=== PATIENT | female | born 1990 | race Caucasian/White ===

== ENCOUNTER 2023-02-16 03:33 | Inpatient (IN) | payer BC ==
[2023-02-16 03:58] VITALS: BMI 27.1
[2023-02-16] MEDS ORDERED: Docusate 100 MG CAP PO PRN (04:22)
[2023-02-16] MEDS ORDERED: fentaNYL 50 mcg/mL 1 mL Vial SLOW IVP PRN (04:22)
[2023-02-16] MEDS ORDERED: Acetaminophen 500 MG TAB PO PRN (04:22)
[2023-02-16] MEDS ORDERED: hydrALAZINE 20 MG/ML VIAL SLOW IVP PRN (04:22)
[2023-02-16] MEDS ORDERED: Promethazine HCl 25 MG/ML VIAL IM PRN ×2 (04:22→19:03)
[2023-02-16] MEDS ORDERED: Lidocaine 1% (PF) 30 ML VIAL SC PRN (04:22)
[2023-02-16] MEDS ORDERED: Methylergonovine 0.2 MG/ML VIAL IM PRN (04:22)
[2023-02-16] MEDS ORDERED: Ondansetron PF 4 MG/2 ML Vial IVP PRN ×2 (04:22→19:03)
[2023-02-16] MEDS ORDERED: Ibuprofen 800 MG TAB PO PRN (04:22)
[2023-02-16] MEDS ORDERED: Misoprostol 200 MCG TAB PR PRN (04:22)
[2023-02-16] MEDS ORDERED: Diphenoxylate HCl/Atropine Tablet PO PRN (04:22)
[2023-02-16] MEDS ORDERED: Carboprost 250 MCG/ML AMP IM PRN (04:22)
[2023-02-16] MEDS ORDERED: Tranexamic Acid 1,000 MG/10 ML VIAL IVP PRN (04:22)
[2023-02-16] MEDS ORDERED: Oxytocin 30 units/NS 500 ML 500 ML IV SCH ×2 (04:30)
[2023-02-16 05:55] LABS: Hematocrit 37.9 % (34.9-44.5); Hemoglobin 13.2 g/dL (12.0-15.5); Mean Corpuscular HGB CONC 34.8 g/dL (32.0-36.0); Mean Corpuscular Volume 86.1 fl (81.6-98.3); Mean Platelet Volume 10.3 fl (7.4-10.4); Platelet Count 264 10x3/uL (150-450); RBC Distribution Width 12.7 % (11.5-14.5); White Blood Cell (WBC) Count 8.9 10x3/uL (3.5-10.5)
[2023-02-16] MEDS ORDERED: Misoprostol 100 MCG TAB PO SCH (06:00)
[2023-02-16 06:34] LABS: HBSAg Index 0.11 S/CO (0-0.99); Hep B Surf Ag - L&D Non-Reactive S/CO (NonReactive)
[2023-02-16 06:35] LABS: Syphilis Antibody Nonreactive (Nonreactive); Syphilis Antibody Index 0.05 S/CO (<1.00 Non-Reactive)
[2023-02-16] MEDS ORDERED: Bupivacaine PF 0.5% 30 ML VIAL ONE ×2 (08:00→23:37)
[2023-02-16] MEDS ORDERED: Lidocaine 2% MPF 10 ML AMP (For Epidural Use) ONE (08:00)
[2023-02-16] MEDS ORDERED: Penicillin G 2.5 MILL.units 2.5 MILL.UNITS in Premix Bag 1 BAG IVPB SCH (09:15)
[2023-02-16] MEDS ORDERED: Penicillin G Potassium 5 MILL.UNITS in Sodium Chloride 0.9% 100 ML IVPB SCH (09:15)
[2023-02-16] MEDS: fentaNYL/Ropivacaine Epidural 100 ML ONE ×2 (10:30→18:31)
[2023-02-16] MEDS: Lactated Ringer's 1,000 ML IV SCH (17:07)
[2023-02-16] MEDS ORDERED: fentaNYL/Ropivacaine Epidural 100 ML ONE (18:27)
[2023-02-16] MEDS ORDERED: Naloxone HCl 0.4 mg/ml Vial IV PRN ×2 (19:03)
[2023-02-16] MEDS ORDERED: diphenhydrAMINE 50 MG/ML VIAL IVP PRN (19:03)
[2023-02-16] MEDS ORDERED: Acetaminophen 325 MG TAB PO PRN (19:03)
[2023-02-16] MEDS ORDERED: FENTANYL EPIDURAL SCH (19:15)
[2023-02-16] MEDS ORDERED: Lactated Ringer's 500 ML IV PRN (19:15)
[2023-02-16] MEDS ORDERED: ePHEDrine/0.9% NaCl/PF SYRINGE 50 mg/10 ml SLOW IVP PRN (19:15)
[2023-02-16] MEDS ORDERED: ROPIVACAINE EPIDURAL SCH (19:15)
[2023-02-16] MEDS ORDERED: Moisturizing Cream (Eucerin) 113 GM JAR TOP PRN (19:15)
[2023-02-16] MEDS ORDERED: Ampicillin 2 GM in Sodium Chloride 0.9% 100 ML IVPB SCH (19:58)
[2023-02-16 22:09] LABS: #Monocytes 1.1 10x3/uL (0.0-1.1); #Neutrophils 12.5 10x3/uL (1.5-8.4); %Basophils 0.1 % (0.0-2.0); %Lymphocytes 7.1 % (18.0-47.0); %Monocytes 7.2 % (0.0-10.0); %Neutrophils 85.2 % (40.0-75.0); Hematocrit 38.1 % (34.9-44.5); Mean Corpuscular HGB CONC 34.1 g/dL (32.0-36.0); Mean Corpuscular Hemoglobin 29.7 pg (27.0-33.0); Mean Platelet Volume 10.3 fl (7.4-10.4); Platelet Count 212 10x3/uL (150-450); Red Blood Cell (RBC) Count 4.38 10x6/uL (3.90-5.03); White Blood Cell (WBC) Count 14.7 10x3/uL (3.5-10.5)
[2023-02-16 22:20] LABS: ALT (SGPT) Less than 7 U/L (8-55); AST (SGOT) 14 U/L (5-34); Albumin 3.1 g/dL (3.5-5.0); Alkaline Phosphatase 84 U/L (40-110); Anion Gap 15 mmol/L (10-20); BUN (Urea Nitrogen) 5 mg/dL (7.0-18.7); Bilirubin, Total 0.5 mg/dL (0.2-1.2); Calc. Creatinine Clearance 121 mL/min (70-130); Calcium 8.4 mg/dL (7.8-10.44); Carbon Dioxide 17 mmol/L (22-29); Chloride 106 mmol/L (98-107); Estimated GFR 111; Globulin 2.7 g/dL (2.4-3.5); Glucose 97 mg/dL (70-105); Potassium 3.2 mmol/L (3.5-5.1); Protein, Total 5.8 g/dL (6.0-8.3); Sodium 135 mmol/L (136-145)
[2023-02-16] MEDS ORDERED: Oxytocin 10 UNITS/ML VIAL ONE (22:58)
[2023-02-16] MEDS ORDERED: Ondansetron PF 4 MG/2 ML Vial ONE (22:58)
[2023-02-16] MEDS ORDERED: Azithromycin 500 MG VIAL ONE (23:01)
[2023-02-16] MEDS ORDERED: CEFAZOLIN 2 GM VIAL ONE (23:01)
[2023-02-16] MEDS ORDERED: Bicitra 30 ML UDCUP PO PRN (23:08)
[2023-02-16] MEDS ORDERED: Famotidine/PF 20 mg/2ml Vial SLOW IVP PRN (23:08)
[2023-02-16] MEDS ORDERED: Azithromycin 500 MG in Sodium Chloride 0.9% 250 ML 250 ML IVPB SCH (23:15)
[2023-02-16] MEDS ORDERED: CEFAZOLIN 2 GM in Sodium Chloride 0.9% 100 ML IVPB SCH (23:15)
[2023-02-17] MEDS ORDERED: SUGAMMADEX SODIUM 200 MG/2 ML VIAL ONE (00:07)
[2023-02-17] MEDS ORDERED: Dexamethasone 4 mg/ml Vial ONE (00:08)
[2023-02-17] MEDS ORDERED: Naloxone HCl 0.4 mg/ml Vial IVP PRN ×2 (00:27)
[2023-02-17] MEDS ORDERED: Moisturizing Cream (Eucerin) 113 GM JAR TOP PRN (00:27)
[2023-02-17] MEDS ORDERED: Promethazine HCl 25 MG/ML VIAL IM PRN ×2 (00:27→01:25)
[2023-02-17] MEDS ORDERED: diphenhydrAMINE 50 MG/ML VIAL IVP PRN ×2 (00:27→01:25)
[2023-02-17] MEDS ORDERED: Morphine PF 10 MG/10 ML VIAL ONE (00:27)
[2023-02-17] MEDS ORDERED: Ketorolac Tromethamine 30 MG/ML VIAL IVP PRN (00:27)
[2023-02-17] MEDS ORDERED: Ondansetron PF 4 MG/2 ML Vial IVP PRN ×2 (00:27→01:25)
[2023-02-17] MEDS ORDERED: Naloxone HCl 0.4 mg/ml Vial IV PRN ×2 (00:27→01:25)
[2023-02-17] MEDS ORDERED: Promethazine HCl 25 MG SUPP PR PRN (00:27)
[2023-02-17] MEDS ORDERED: Communication Order-Pharmacy FS SCH ×2 (00:30→01:30)
[2023-02-17] MEDS ORDERED: fentaNYL 50 mcg/mL 1 mL Vial ONE (00:36)
[2023-02-17] MEDS ORDERED: Boostrix 0.5 ML (Tdap) VIAL (>/=7 yrs of age) IM ONE (01:22)
[2023-02-17] MEDS ORDERED: hydrALAZINE 20 MG/ML VIAL SLOW IVP PRN (01:22)
[2023-02-17] MEDS ORDERED: diphenhydrAMINE 50 MG/ML VIAL IM PRN (01:25)
[2023-02-17] MEDS ORDERED: FENTANYL 500 MCG/10 ML VIAL 2,000 MCG in Sodium Chloride 0.9% 60 ML IV PRN (01:25)
[2023-02-17] MEDS ORDERED: diphenhydrAMINE 25 MG CAP PO PRN (01:25)
[2023-02-17] MEDS ORDERED: FENTANYL 500 MCG/10 ML VIAL 1,000 MCG in Sodium Chloride 0.9% 30 ML IV PRN (01:30)
[2023-02-17] MEDS: Lactated Ringer's 1,000 ML IV SCH ×2 (01:48→03:41)
[2023-02-17] MEDS ORDERED: Lanolin Ointment 7 GM TUBE TOP PRN (04:06)
[2023-02-17] MEDS ORDERED: Acetaminophen 325 MG TAB PO PRN ×2 (04:06→07:56)
[2023-02-17] MEDS ORDERED: Ibuprofen 800 MG TAB PO SCH (06:00)
[2023-02-17 08:01] LABS: #Eosinphils 0.1 10x3/uL (0.0-0.5); #Monocytes 0.9 10x3/uL (0.0-1.1); #Neutrophils 18.4 10x3/uL (1.5-8.4); %Basophils 0.1 % (0.0-2.0); %Eosinophils 0.2 % (0.0-6.0); %Lymphocytes 4.4 % (18.0-47.0); %Monocytes 4.2 % (0.0-10.0); %Neutrophils 90.7 % (40.0-75.0); Hematocrit 32.9 % (34.9-44.5); Hemoglobin 11.4 g/dL (12.0-15.5); Mean Corpuscular HGB CONC 34.7 g/dL (32.0-36.0); Mean Corpuscular Hemoglobin 30.4 pg (27.0-33.0); Mean Corpuscular Volume 87.7 fl (81.6-98.3); Mean Platelet Volume 10.6 fl (7.4-10.4); Platelet Count 227 10x3/uL (150-450); Red Blood Cell (RBC) Count 3.75 10x6/uL (3.90-5.03); White Blood Cell (WBC) Count 20.3 10x3/uL (3.5-10.5)
[2023-02-17 08:29] LABS: INR-International Normal Ratio 0.9; PTT 29.9 sec (22.0-33.0)
[2023-02-17] MEDS: Ibuprofen 800 MG TAB PO SCH ×3 (08:43→20:44)
[2023-02-17] MEDS: Docusate 100 MG CAP PO SCH ×2 (08:43→20:44)
[2023-02-17] MEDS: Prenatal Vitamin 1 TAB PO SCH (08:46)
[2023-02-17] MEDS: Acetaminophen 500 MG TAB PO SCH (17:14)
[2023-02-18] MEDS: Acetaminophen 500 MG TAB PO SCH ×5 (00:15→23:14)
[2023-02-18] MEDS: Ibuprofen 800 MG TAB PO SCH ×4 (02:43→20:45)
[2023-02-18 04:12] LABS: Hematocrit 28.7 % (34.9-44.5); Hemoglobin 9.9 g/dL (12.0-15.5); Mean Corpuscular HGB CONC 34.5 g/dL (32.0-36.0); Mean Corpuscular Hemoglobin 30.9 pg (27.0-33.0); Mean Corpuscular Volume 89.7 fl (81.6-98.3); Mean Platelet Volume 10.5 fl (7.4-10.4); Platelet Count 191 10x3/uL (150-450); RBC Distribution Width 13.3 % (11.5-14.5); White Blood Cell (WBC) Count 13.3 10x3/uL (3.5-10.5)
[2023-02-18 04:26] LABS: Anion Gap 10 mmol/L (10-20); BUN (Urea Nitrogen) 5 mg/dL (7.0-18.7); Calc. Creatinine Clearance 126 mL/min (70-130); Carbon Dioxide 21 mmol/L (22-29); Chloride 112 mmol/L (98-107); Estimated GFR 117; Glucose 90 mg/dL (70-105); Potassium 3.6 mmol/L (3.5-5.1); Sodium 139 mmol/L (136-145)
[2023-02-18] MEDS: Simethicone Chewable 80 MG TAB PO PRN ×3 (05:41→17:41)
[2023-02-18] MEDS ORDERED: fentaNYL 50 mcg/mL 1 mL Vial SLOW IVP PRN (07:01)
[2023-02-18] MEDS: Prenatal Vitamin 1 TAB PO SCH (08:52)
[2023-02-18] MEDS: Docusate 100 MG CAP PO SCH ×2 (08:52→20:45)
[2023-02-19] MEDS: Ibuprofen 800 MG TAB PO SCH ×2 (04:38→08:08)
[2023-02-19] MEDS: Acetaminophen 500 MG TAB PO SCH (05:56)
[2023-02-19 07:42] VITALS: BP 138/83; TEMP 98.2
[2023-02-19] MEDS: Docusate 100 MG CAP PO SCH (08:08)
[2023-02-19] MEDS: Prenatal Vitamin 1 TAB PO SCH (08:08)
== END 2023-02-19 11:35 | disposition home or self-care (01) | DRG 787 ==
LOC: CSHLD/OP 03:33 → CSHLD 04:24 → CSHPP 02-17 03:25
PROVIDERS: ADMIT Obstetrics & Gynecology; ATTEND Obstetrics & Gynecology
PROC: 10H07YZ Insertion of Other Device into Products of Conception, Via Natural or Artificial Opening (ICD-10-PCS; 2023-02-16)
PROC: 10907ZC Drainage of Amniotic Fluid, Therapeutic from Products of Conception, Via Natural or Artificial Opening (ICD-10-PCS; 2023-02-16)
PROC: 10D00Z1 Extraction of Products of Conception, Low, Open Approach (ICD-10-PCS; principal; 2023-02-17)
DX: O42.02 Full-term premature rupture of membranes, onset of labor within 24 hours of rupture (principal); D62 Acute posthemorrhagic anemia; O72.1 Other immediate postpartum hemorrhage; Z3A.37 37 weeks gestation of pregnancy; Z37.0 Single live birth; O76 Abnormality in fetal heart rate and rhythm complicating labor and delivery; O34.13 Maternal care for benign tumor of corpus uteri, third trimester; D25.9 Leiomyoma of uterus, unspecified; Z82.49 Family history of ischemic heart disease and other diseases of the circulatory system; Z88.5 Allergy status to narcotic agent; Z88.8 Allergy status to other drugs, medicaments and biological substances; N80.109 Endometriosis of ovary, unspecified side, unspecified depth; O99.892 Other specified diseases and conditions complicating childbirth; O90.81 Anemia of the puerperium
CPT/HCPCS: 36415; 51702; 80048; 80053; 85025; 85027; 85384; 85610; 85730; 86780; 86850; 86900; 86901; 87340; 99285; J0290; J1100; J1885; J2274; J2405; J2590; J3010; J3490; J7120; S0020